=== PATIENT | male | born 1970 | race Caucasian/White ===

== ENCOUNTER 2020-04-18 00:57 | Outpatient (CLI) | payer OTHER, SELFPAY ==
[2020-04-18 18:51] LABS: SARS-CoV-2 RNA PCR Negative
== END 2020-04-18 00:58 | disposition home or self-care (01) ==
LOC: ANHCOVIDDT 00:57
PROVIDERS: PCP Family Medicine; Visit Provider Internal Medicine Gastroenterology
DX: Z01.818 Encounter for other preprocedural examination (principal); Z20.828 Contact with and (suspected) exposure to other viral communicable diseases
CPT/HCPCS: 87635; C9803; U0003

== ENCOUNTER 2020-04-21 01:21 | Day surgery (SDC) | payer OTHER, SELFPAY ==
[2020-04-13 14:01] VITALS: BMI 31.4
[2020-04-21 11:22] VITALS: BP 130/86; PULSE 88; RESP 16; TEMP 36.2; O2SAT 98
[2020-04-21] MEDS: LACTATED RINGERS 1,000 ML 150 ML IV CONT (11:38)
--- NOTE | 2020-04-21 11:41 | WPDANESEPPF ---
Anes - Initial Pre Proc Eval Procedure: Operation Date: 04/21/20 13:30 Proposed Procedures p Screening Colonoscopy - Won Orta MD Date/Time: 04/21/20 11:41 Surgeon: Won Orta MD Pre Op Diagnosis: Neoplasm Screening Patient Data Age: 50 Gender: M Height: 6 ft Weight: 99.8 kg Last Vital Signs Temp 97.1 F L 04/21/20 11:22 Pulse 88 04/21/20 11:22 Resp 16 04/21/20 11:22 BP 130/86 04/21/20 11:22 Pulse Ox 98 04/21/20 11:22 Allergies Allergy/AdvReac Type Severity Reaction Status Date / Time No Known Allergies Allergy Verified 06/30/19 17:15 Home Medications Medication Instructions Recorded Confirmed Type omeprazole 40 mg capsule,delayed 40 mg PO DAILY #90 cap 05/20/19 04/13/20 Rx release tadalafil 5 mg tablet 5 mg PO DAILY #18 tablet 06/07/19 04/13/20 Rx levocetirizine 5 mg tablet 5 mg PO DAILY #90 tablet 02/03/20 04/13/20 Rx allopurinol 300 mg PO DAILY 04/13/20 04/13/20 History cholecalciferol (vitamin D3) 25 mcg PO DAILY 04/13/20 04/13/20 History [Vitamin D3] Patient hx anesthesia problems: none Family hx anesthesia problems: none PMFSH Past Medical History Medical History (Updated 04/21/20 @ 11:41 by Chavez Fowler MD) Basal cell carcinoma removed July 2018 GERD (gastroesophageal reflux disease) Spondylitis, cervical Family History Family History (Updated 10/08/16 @ 11:01 by DOCTOR UNKNOWN) Grandparent Diabetes mellitus Father Family history of gout Hypertension Family history of elevated blood lipids Social History Social History Smoking status: Never smoker Second hand tobacco smoke exposure: Yes Alcohol intake: current Drinks per week: 3 Substance use: never Substance use type: does not use Living arrangements: with family Anes - Eval Final PreProcedure Day of Procedure 04/21/20 11:41 Patient weight: overweight Heart: regular rate and rhythm Lungs: clear to auscultation Airway: Mallampati scale class II Neurological: alert and oriented Last oral intake: >/= 8 hours ASA classification: II Emergent: no Anesthetic plan: proceed Anesthesia type and monitoring: general GIVS and standard monitoring Informed Consent: The patient's anesthetic plan and its attendant risks and benefits were discussed with the patient/family/POA. Questions were solicited and answers provided to the satisfaction of the patient/family/POA.
--- NOTE | 2020-04-21 13:26 | PM.HPGS ---
History of Present Illness History of Present Illness Consent: Risks, benefits, and alternatives have been discussed and questions answered. Patient agrees to proceed with procedure. Chief complaint: Neoplasm Screening Narrative: Colin Arteaga is a 50 year old male with colon polyps in 2014 Review of Systems Constitutional: Constitutional: Denies headache(s) and Denies weakness Eyes: Eyes: Denies blurry vision ENT: Reports Normal hearing present, Denies headache(s) and Denies neck pain Cardiovascular: Cardiovascular: Denies chest pain and Denies dyspnea Respiratory: Respiratory: Denies dyspnea Gastrointestinal: Gastrointestinal: Reports no additional gastrointestinal complaints Genitourinary: Genitourinary: Denies dysuria Musculoskeletal: Musculoskeletal: Denies neck pain Integumentary/Breasts: Skin/Breast: Denies dry skin Neurologic: Reports Normal hearing present, Denies headache(s) and Denies weakness Psychiatric: Psychiatric: Denies anxiety Endocrine: Endocrine: Denies change in body appearance Hematologic/Lymphatic: Hematologic/Lymphatic: Denies easy bleeding Allergic/Immunologic: Allergic/Immunologic: Denies urticaria PMFSH Past Medical History Medical History (Updated 04/21/20 @ 13:26 by Won Orta MD) Adenomatous colon polyp Basal cell carcinoma removed July 2018 GERD (gastroesophageal reflux disease) Spondylitis, cervical Family History Family History (Updated 10/08/16 @ 11:01 by DOCTOR UNKNOWN) Grandparent Diabetes mellitus Father Family history of gout Hypertension Family history of elevated blood lipids Social History Social History Smoking status: Never smoker Second hand tobacco smoke exposure: Yes Alcohol intake: current Drinks per week: 3 Substance use: never Substance use type: does not use Living arrangements: with family Meds Home Medications and Allergies Home Medications Medication Instructions Recorded Confirmed Type omeprazole 40 mg capsule,delayed 40 mg PO DAILY #90 cap 05/20/19 04/13/20 Rx release tadalafil 5 mg tablet 5 mg PO DAILY #18 tablet 06/07/19 04/13/20 Rx levocetirizine 5 mg tablet 5 mg PO DAILY #90 tablet 02/03/20 04/13/20 Rx allopurinol 300 mg PO DAILY 04/13/20 04/13/20 History cholecalciferol (vitamin D3) 25 mcg PO DAILY 04/13/20 04/13/20 History [Vitamin D3] Allergies Allergy/AdvReac Type Severity Reaction Status Date / Time No Known Allergies Allergy Verified 06/30/19 17:15 Vital Signs Vital Signs - 24 hr 04/21/20 11:22 Temperature 97.1 F L Pulse Rate 88 Respiratory Rate 16 Blood Pressure 130/86 Pulse Oximetry 98 Exam Const: General: comfortable and no acute distress HENMT: General nose exam: Normal nares present Eyes: General: appearance normal, both eyes and all related structures Neck: Neck: no JVD Resp: Auscultation: clear to auscultation bilaterally Cardio: Rate: regular rate Rhythm: regular rhythm GI: Inspection: non-distended GI Palp: Yes Soft to palpation Skin: General skin exam: normal color Neuro: General: gait normal Speech: normal speech Extrem: General: normal to inspection Psych: Mental Status: mental status grossly normal Assessment and Plan Assessment and plan (1) Adenomatous colon polyp: Code(s): D12.6 - Benign neoplasm of colon, unspecified Status: Acute Assessment and Plan: will proceed with colonoscopy
[2020-04-21 13:30] VITALS: BP 104/70; PULSE 75; RESP 21; O2SAT 94
[2020-04-21 13:40] VITALS: BP 100/70; PULSE 70; RESP 19; O2SAT 95
[2020-04-21 13:50] VITALS: BP 117/78; PULSE 79; RESP 20; O2SAT 98
== END 2020-04-21 14:05 | disposition home or self-care (01) ==
PROVIDERS: PCP Family Medicine; Visit Provider Internal Medicine Gastroenterology
PROC: 0DJD8ZZ Inspection of Lower Intestinal Tract, Via Natural or Artificial Opening Endoscopic (ICD-10-PCS; CPT 45378; principal; 2020-04-21 13:30)
DX: Z12.11 Encounter for screening for malignant neoplasm of colon (principal); K63.5 Polyp of colon; K21.9 Gastro-esophageal reflux disease without esophagitis; M46.82 Other specified inflammatory spondylopathies, cervical region; Z85.828 Personal history of other malignant neoplasm of skin; K64.8 Other hemorrhoids
CPT/HCPCS: 45380; 88305; J2704; J7120